=== PATIENT | female | born 1980 | race Caucasian/White ===

== ENCOUNTER 2023-07-10 17:55 | Inpatient (IN) | payer MEDICAID ==
[~2023-07-10] VITALS: Ht 157.5 cm; Wt 75.0 kg
[2023-07-10 18:38] LABS: URINE HCG NEGATIVE (NEG)
[2023-07-10 18:41] LABS: BILIRUBIN,URINE MODERATE (Neg); CLARITY,URINE CLOUDY (Clear); COLOR,URINE BROWN (Yellow); GLUCOSE, URINE NEGATIVE (Neg); KETONES,URINE >=80 mg/dl (Neg); LEUKOCYTE ESTERASE ,URINE NEGATIVE (Neg); OCCULT BLOOD,URINE LARGE (Neg); PH,URINE 5.5 (4.8-8.0); PROTEIN,URINE >=300 mg/dl (Neg)
[2023-07-10 18:47] LABS: UA COLLECTION TYPE CLN CATCH MIDSTREAM
[2023-07-10 18:48] LABS: NITRITES, URINE NEGATIVE (Neg)
[2023-07-10 19:31] LABS: BACTERIA,URINE 2+ /HPF (Neg); MUCUS STRANDS MODERATE /LPF (Neg); RBC,URINE TNTC /HPF (0-2); SQUAMOUS EPITHELIAL CELL,UR FEW /LPF (FEW); WBC,URINE 20-30 /HPF (0-4)
[2023-07-10 19:32] LABS: TRANSITIONAL EPI CELLS,URINE MODERATE /HPF
[2023-07-10] MEDS ORDERED: normal saline 1000ML IV soln IVB ONE (19:35)
[2023-07-10] MEDS ORDERED: ondansetron/PF 4mg/2ml inj IV ONE (19:35)
[2023-07-10] MEDS ORDERED: ketorolac tromethamine 15mg/ml inj. IV ONE (19:35)
[2023-07-10 20:11] LABS: BASOPHILS # (AUTO) 0.1 X10'3 (0-0.2); BASOPHILS % (AUTO) 0.3 % (0-1); LYMPHOCYTES # (AUTO) 0.7 X10'3 (1.1-4.8); MEAN CORPUSCULAR HGB CONC 33.3 g/dL (33.0-36.5); MEAN CORPUSCULAR VOLUME 90.1 FL (78-98); MONOCYTES # (AUTO) 1.3 X10'3 (0-0.9)
[2023-07-10 20:12] LABS: ALANINE AMINOTRANSFERASE 17 U/L (12-78); ALBUMIN 2.6 G/DL (3.4-5.0); ALBUMIN/GLOBULIN RATIO 0.6 (1.1-1.5); ALKALINE PHOSPHATASE 96 IU/L (46-116); ANION GAP 11 (8-16); ASPARTATE AMINO TRANSFERASE 18 U/L (10-37); BILIRUBIN,TOTAL 1.1 MG/DL (0.1-1.0); BLOOD UREA NITROGEN 12 MG/DL (7-18); CHLORIDE 98 MMOL/L (99-107); CREATININE 1.09 MG/DL (0.40-0.90); GLUCOSE 121 MG/DL (70-104); LIPASE 17 U/L (16-77); MAGNESIUM 1.9 MG/DL (1.5-2.4); POTASSIUM 3.3 MMOL/L (3.5-5.1); SODIUM 132 MMOL/L (135-145); TOTAL PROTEIN 6.9 G/DL (6.4-8.2); eCRCL 53 ML/MIN; eGFR 55 ML/MIN
[2023-07-10 20:13] LABS: EOSINOPHILS % (AUTO) 0 % (0-6); HEMATOCRIT 34.4 % (35.0-45.0); HEMOGLOBIN 11.5 g/dl (12.0-16.0); LYMPHOCYTES % (AUTO) 3.8 % (21-51); MEAN PLATELET VOLUME 7.9 FL (7.4-10.4); MONOCYTES % (AUTO) 7.3 % (2-12); NEUTROPHILS # (AUTO) 15.5 X10'3 (1.8-7.7); NEUTROPHILS % (AUTO) 88.6 % (42-75); PLATELET COUNT 321 X10'3 (140-440); RED BLOOD COUNT 3.82 X10'6 (4.20-5.60); RED CELL DISTRIBUTION WIDTH 13.7 % (11.5-14.5); WHITE BLOOD COUNT 17.5 X10'3 (4.5-11.0)
[2023-07-10] MEDS ORDERED: levoFLOXACIN-Levaquin 500mg/D5 100 ML IV ONE (21:55)
[2023-07-10] MEDS ORDERED: metroNIDAZOLE-Flagyl 500mg/NS 100 ML IV ONE (21:55)
[2023-07-10] MEDS ORDERED: morphine 2 MG/ML inj. syringe IV PRN (22:30)
[2023-07-10] MEDS ORDERED: magnesium Cl slow-release 64mg tablet PO PRN (22:40)
[2023-07-10] MEDS ORDERED: magnesium hydroxide 30ml (MOM) UD suspension PO PRN (22:40)
[2023-07-10] MEDS ORDERED: mag hydrox/Alum hydrox/simeth 30ml oral suspension PO PRN (22:40)
[2023-07-10] MEDS ORDERED: acetaminophen 325mg tablet PO PRN (22:40)
[2023-07-10] MEDS ORDERED: magnesium 4gm in 100ml NS 100 ML IV PRN (22:40)
[2023-07-10] MEDS ORDERED: magnesium 2GM in 50ml NS 50 ML IV PRN (22:40)
[2023-07-10] MEDS ORDERED: potassium Cl 20 mEq SR tablet PO PRN ×2 (22:40)
[2023-07-10] MEDS ORDERED: potassium Cl 40MEQ/1/2NS 520ml 520 ML IV PRN (22:40)
[2023-07-10] MEDS ORDERED: LACT1CAP26 PO (23:38)
[2023-07-10] MEDS ORDERED: MULT-1085 PO (23:38)
[2023-07-10] MEDS ORDERED: CETI10TA14 PO (23:38)
[2023-07-10] MEDS ORDERED: ESCI20TA39 PO (23:38)
[2023-07-10] MEDS ORDERED: BUPR-317 PO (23:38)
[2023-07-10] MEDS: normal saline 1000ml 1,000 ML IV SCH (23:54)
[2023-07-11] MEDS: metroNIDAZOLE-Flagyl 500mg/NS 100 ML IV SCH ×3 (01:14→16:16)
[2023-07-11] MEDS: simethicone 125mg capsule PO SCH ×4 (02:29→20:38)
[2023-07-11 03:40] LABS: BASOPHILS # (AUTO) 0.1 X10'3 (0-0.2); BASOPHILS % (AUTO) 0.4 % (0-1); EOSINOPHILS % (AUTO) 0 % (0-6); HEMATOCRIT 31.3 % (35.0-45.0); HEMOGLOBIN 10.3 g/dl (12.0-16.0); LYMPHOCYTES % (AUTO) 5.2 % (21-51); MEAN CORPUSCULAR HEMOGLOBIN 29.9 PG (27.0-31.0); MEAN CORPUSCULAR HGB CONC 32.7 g/dL (33.0-36.5); MEAN CORPUSCULAR VOLUME 91.3 FL (78-98); MEAN PLATELET VOLUME 8.1 FL (7.4-10.4); MONOCYTES # (AUTO) 1.7 X10'3 (0-0.9); MONOCYTES % (AUTO) 9.1 % (2-12); NEUTROPHILS # (AUTO) 15.7 X10'3 (1.8-7.7); NEUTROPHILS % (AUTO) 85.3 % (42-75); PLATELET COUNT 274 X10'3 (140-440); RED BLOOD COUNT 3.43 X10'6 (4.20-5.60); RED CELL DISTRIBUTION WIDTH 13.7 % (11.5-14.5); WHITE BLOOD COUNT 18.5 X10'3 (4.5-11.0)
[2023-07-11 03:55] LABS: ALANINE AMINOTRANSFERASE 16 U/L (12-78); ALBUMIN 2.2 G/DL (3.4-5.0); ALBUMIN/GLOBULIN RATIO 0.6 (1.1-1.5); ALKALINE PHOSPHATASE 92 IU/L (46-116); ANION GAP 9 (8-16); ASPARTATE AMINO TRANSFERASE 20 U/L (10-37); BILIRUBIN,TOTAL 0.9 MG/DL (0.1-1.0); BLOOD UREA NITROGEN 13 MG/DL (7-18); BUN/CREATININE RATIO 12.9 (10.0-20.0); CALCIUM 8.3 MG/DL (8.5-10.1); CHLORIDE 102 MMOL/L (99-107); CREATININE 1.01 MG/DL (0.40-0.90); GLUCOSE 86 MG/DL (70-104); MAGNESIUM 1.8 MG/DL (1.5-2.4); POTASSIUM 3.4 MMOL/L (3.5-5.1); SODIUM 133 MMOL/L (135-145); TOTAL PROTEIN 5.8 G/DL (6.4-8.2); eCRCL 57 ML/MIN; eGFR 60 ML/MIN
[2023-07-11] MEDS ORDERED: acetaminophen 1,000mg/100ml IV 100 ML IV ONE (06:55)
[2023-07-11] MEDS: ESCITALOPRAM 10 mg tablet 10 MG TABLET PO SCH (08:00)
[2023-07-11] MEDS: buPROPion SR 150mg tablet PO SCH (08:00)
[2023-07-11] MEDS: K and/or MAG REPLACEMENT MC SCH ×2 (08:00→20:00)
[2023-07-11] MEDS: ondansetron/PF 4mg/2ml inj IV PRN ×3 (08:31→20:26)
[2023-07-11] MEDS: heparin, porcine 5000 units/ml vial SQ SCH ×2 (08:31→20:26)
[2023-07-11] MEDS: morphine 2 MG/ML inj. syringe IV PRN ×2 (08:32→14:28)
[2023-07-11] MEDS: docusate sod 100mg capsule PO SCH ×2 (08:32→20:25)
[2023-07-11] MEDS: levoFLOXACIN-Levaquin 500mg/D5 100 ML IV SCH (08:33)
[2023-07-11] MEDS: normal saline 1000ml 1,000 ML IV SCH ×2 (08:34→18:40)
[2023-07-11 08:48] VITALS: BP 101/65; PULSE 75; RESP 14; TEMP 98.3; O2SAT 99
[2023-07-11 10:00] VITALS: BP 108/69; PULSE 81; RESP 16; TEMP 98.4; O2SAT 100
[2023-07-11 15:55] VITALS: RESP 16; O2SAT 97
--- NOTE | 2023-07-11 16:21 | NUR ---
PAGER ID: [phone] MESSAGE: INOCENCIA ACOSTA, ORTHO, 9991. RE: [id number]. PT. HAS MORPHINE ONLY FOR PAIN, BUT PT. NECK STILL 8 PAIN. PT. WONDERING IF U HAVE ANOTHER PAIN MED. RUTHYI
--- NOTE | 2023-07-11 17:47 | NUR ---
PAGER ID: [phone] MESSAGE: INOCENCIA ACOSTA, ORTHO, 2018. RE: [id number]. PT. WANTS LACTOBACILLI CAP. ADDED ON, AND WANTS THE DILAUDID. RUTHYI. THANKS
[2023-07-11 18:00] VITALS: BP 142/49; PULSE 72; RESP 15; TEMP 97.4; O2SAT 100
--- NOTE | 2023-07-11 18:09 | NUR ---
Problems reprioritized. Patient report given GABI PRO, questions answered & plan of care reviewed with .
--- NOTE | 2023-07-11 18:42 | NUR ---
Patient in room ORTHO 4023. I have received report from KARLA PRO and had the opportunity to ask questions and assume patient care.
[2023-07-11 20:00] VITALS: RESP 16; O2SAT 97
[2023-07-11] MEDS: temazepam 15mg capsule PO PRN (20:24)
[2023-07-11] MEDS: lactobacillus rhamnosus 10,000 MMU CELLS/CAPSULE PO SCH (20:25)
[2023-07-11] MEDS: HYDROmorphone inj. 0.5 MG/0.5 ML DISP.SYRIN IV PRN (20:27)
[2023-07-11 22:00] VITALS: BP 105/50; PULSE 73; RESP 19; TEMP 97.7; O2SAT 100
[2023-07-12] MEDS: HYDROmorphone inj. 0.5 MG/0.5 ML DISP.SYRIN IV PRN ×4 (00:33→21:39)
[2023-07-12] MEDS: metroNIDAZOLE-Flagyl 500mg/NS 100 ML IV SCH ×3 (00:33→15:12)
[2023-07-12 04:21] LABS: BASOPHILS # (AUTO) 0.1 X10'3 (0-0.2); BASOPHILS % (AUTO) 0.4 % (0-1); EOSINOPHILS % (AUTO) 0.2 % (0-6); HEMATOCRIT 28.6 % (35.0-45.0); HEMOGLOBIN 9.5 g/dl (12.0-16.0); LYMPHOCYTES # (AUTO) 1.4 X10'3 (1.1-4.8); LYMPHOCYTES % (AUTO) 8.3 % (21-51); MEAN CORPUSCULAR HEMOGLOBIN 29.9 PG (27.0-31.0); MEAN CORPUSCULAR HGB CONC 33.1 g/dL (33.0-36.5); MEAN CORPUSCULAR VOLUME 90.4 FL (78-98); MEAN PLATELET VOLUME 8.5 FL (7.4-10.4); MONOCYTES # (AUTO) 1.7 X10'3 (0-0.9); MONOCYTES % (AUTO) 10.3 % (2-12); NEUTROPHILS # (AUTO) 13.1 X10'3 (1.8-7.7); NEUTROPHILS % (AUTO) 80.8 % (42-75); PLATELET COUNT 265 X10'3 (140-440); RED BLOOD COUNT 3.16 X10'6 (4.20-5.60); RED CELL DISTRIBUTION WIDTH 14.1 % (11.5-14.5); WHITE BLOOD COUNT 16.2 X10'3 (4.5-11.0)
[2023-07-12 04:37] LABS: ALANINE AMINOTRANSFERASE 13 U/L (12-78); ALBUMIN/GLOBULIN RATIO 0.5 (1.1-1.5); ALKALINE PHOSPHATASE 85 IU/L (46-116); ANION GAP 6 (8-16); ASPARTATE AMINO TRANSFERASE 17 U/L (10-37); BILIRUBIN,TOTAL 0.4 MG/DL (0.1-1.0); BLOOD UREA NITROGEN 10 MG/DL (7-18); CALCIUM 8.6 MG/DL (8.5-10.1); CHLORIDE 104 MMOL/L (99-107); CREATININE 0.77 MG/DL (0.40-0.90); GLUCOSE 102 MG/DL (70-104); POTASSIUM 3.8 MMOL/L (3.5-5.1); SODIUM 132 MMOL/L (135-145); TOTAL CARBON DIOXIDE 21.7 MMOL/L (24-32); TOTAL PROTEIN 5.7 G/DL (6.4-8.2); eCRCL 75 ML/MIN; eGFR 82 ML/MIN
[2023-07-12] MEDS: normal saline 1000ml 1,000 ML IV SCH ×3 (04:40→20:04)
[2023-07-12 06:00] VITALS: BP 101/59; PULSE 76; RESP 18; TEMP 97.4; O2SAT 98
--- NOTE | 2023-07-12 06:35 | NUR ---
Patient in room ORTHO 4023. I have received report from GABI PRO and had the opportunity to ask questions and assume patient care.
--- NOTE | 2023-07-12 06:38 | NUR ---
Problems reprioritized. Patient report given, questions answered & plan of care reviewed with KARLA PRO.
[2023-07-12] MEDS: simethicone 125mg capsule PO SCH ×3 (08:00→21:00)
[2023-07-12] MEDS: K and/or MAG REPLACEMENT MC SCH ×2 (08:00→20:00)
[2023-07-12] MEDS: levoFLOXACIN-Levaquin 500mg/D5 100 ML IV SCH (08:10)
[2023-07-12] MEDS: ondansetron/PF 4mg/2ml inj IV PRN ×3 (08:11→21:36)
[2023-07-12] MEDS: buPROPion SR 150mg tablet PO SCH (08:12)
[2023-07-12] MEDS: heparin, porcine 5000 units/ml vial SQ SCH ×2 (08:12→21:42)
[2023-07-12] MEDS: docusate sod 100mg capsule PO SCH ×2 (08:13→20:00)
[2023-07-12] MEDS: ESCITALOPRAM 10 mg tablet 10 MG TABLET PO SCH (08:13)
[2023-07-12] MEDS: lactobacillus rhamnosus 10,000 MMU CELLS/CAPSULE PO SCH ×2 (08:13→21:41)
[2023-07-12 10:00] VITALS: BP 99/57; PULSE 61; RESP 16; TEMP 98.1; O2SAT 100
[2023-07-12 10:25] VITALS: RESP 16; O2SAT 100
[2023-07-12 18:00] VITALS: BP 99/52; PULSE 65; RESP 16; TEMP 98.1; O2SAT 100
--- NOTE | 2023-07-12 18:30 | NUR ---
Problems reprioritized. Patient report given TO LUCY PRO, questions answered & plan of care reviewed with .
--- NOTE | 2023-07-12 18:40 | NUR ---
Patient in room ORTHO 4023. I have received report from Phuc PRO and had the opportunity to ask questions and assume patient care.
--- NOTE | 2023-07-12 19:00 | NUR ---
Patient was given MOM for constipation. Addendum: 07/13/23 at 0735 by Zita Barney RN Amended: Links added.
[2023-07-12 19:10] VITALS: RESP 16; O2SAT 100
[2023-07-12] MEDS: temazepam 15mg capsule PO PRN (21:40)
[2023-07-12 22:00] VITALS: BP 117/74; PULSE 71; RESP 18; TEMP 97.5; O2SAT 97
[2023-07-13] MEDS: metroNIDAZOLE-Flagyl 500mg/NS 100 ML IV SCH ×2 (00:18→08:01)
[2023-07-13] MEDS: HYDROmorphone inj. 0.5 MG/0.5 ML DISP.SYRIN IV PRN (01:44)
[2023-07-13] MEDS: normal saline 1000ml 1,000 ML IV SCH (05:12)
[2023-07-13 06:28] LABS: ALANINE AMINOTRANSFERASE 20 U/L (12-78); ALBUMIN/GLOBULIN RATIO 0.5 (1.1-1.5); ALKALINE PHOSPHATASE 76 IU/L (46-116); ANION GAP 7 (8-16); ASPARTATE AMINO TRANSFERASE 19 U/L (10-37); BILIRUBIN,TOTAL 0.3 MG/DL (0.1-1.0); BLOOD UREA NITROGEN 10 MG/DL (7-18); BUN/CREATININE RATIO 11.5 (10.0-20.0); CALCIUM 8.7 MG/DL (8.5-10.1); CHLORIDE 105 MMOL/L (99-107); CREATININE 0.87 MG/DL (0.40-0.90); GLUCOSE 82 MG/DL (70-104); MAGNESIUM 1.7 MG/DL (1.5-2.4); POTASSIUM 3.5 MMOL/L (3.5-5.1); SODIUM 136 MMOL/L (135-145); TOTAL CARBON DIOXIDE 23.7 MMOL/L (24-32); TOTAL PROTEIN 5.9 G/DL (6.4-8.2); eCRCL 67 ML/MIN; eGFR 71 ML/MIN
[2023-07-13 06:30] VITALS: BP 139/77; PULSE 64; RESP 19; TEMP 96.7; O2SAT 96
[2023-07-13 06:40] LABS: BASOPHILS % (AUTO) 0.6 % (0-1); EOSINOPHILS # (AUTO) 0.1 X10'3 (0-0.9); HEMATOCRIT 29.8 % (35.0-45.0); HEMOGLOBIN 9.9 g/dl (12.0-16.0); LYMPHOCYTES # (AUTO) 1.4 X10'3 (1.1-4.8); LYMPHOCYTES % (AUTO) 19.7 % (21-51); MEAN CORPUSCULAR HEMOGLOBIN 30.1 PG (27.0-31.0); MEAN CORPUSCULAR HGB CONC 33.4 g/dL (33.0-36.5); MEAN CORPUSCULAR VOLUME 90.2 FL (78-98); MEAN PLATELET VOLUME 8.4 FL (7.4-10.4); MONOCYTES # (AUTO) 0.8 X10'3 (0-0.9); MONOCYTES % (AUTO) 10.7 % (2-12); NEUTROPHILS # (AUTO) 4.9 X10'3 (1.8-7.7); PLATELET COUNT 269 X10'3 (140-440); RED CELL DISTRIBUTION WIDTH 14.1 % (11.5-14.5); WHITE BLOOD COUNT 7.3 X10'3 (4.5-11.0)
--- NOTE | 2023-07-13 06:55 | NUR ---
Problems reprioritized. Patient report given, questions answered & plan of care reviewed with sagrario PRO.
[2023-07-13] MEDS: lactobacillus rhamnosus 10,000 MMU CELLS/CAPSULE PO SCH (07:53)
[2023-07-13] MEDS: ESCITALOPRAM 10 mg tablet 10 MG TABLET PO SCH (07:54)
[2023-07-13] MEDS: buPROPion SR 150mg tablet PO SCH (07:54)
[2023-07-13] MEDS: docusate sod 100mg capsule PO SCH (07:56)
[2023-07-13] MEDS: heparin, porcine 5000 units/ml vial SQ SCH (07:56)
[2023-07-13] MEDS: simethicone 125mg capsule PO SCH (07:56)
[2023-07-13] MEDS: K and/or MAG REPLACEMENT MC SCH (08:00)
[2023-07-13] MEDS: levoFLOXACIN-Levaquin 500mg/D5 100 ML IV SCH (08:02)
[2023-07-13 08:35] VITALS: RESP 16
[2023-07-13 10:00] VITALS: BP 104/70; PULSE 74; RESP 16; TEMP 97.2; O2SAT 99
[2023-07-13] MEDS ORDERED: METR-159 PO (11:34)
[2023-07-13] MEDS ORDERED: HYDR-3972 PO (11:34)
[2023-07-13] MEDS ORDERED: LEVO750T68 PO (11:34)
--- NOTE | 2023-07-13 11:59 | NUR ---
Patient discharge completed. IV removed. All education completed with verbal acknowledgement completed of understanding. Patient aware to pickle sorter new medications at [facility]. Next doses of when to take home meds documented on paper work. Addendum: 07/13/23 at 1204 by Corrine Pascal RN Patient waiting on a ride. Discharged on paperwork.
== END 2023-07-13 12:56 | disposition home or self-care (01) | DRG 720 ==
LOC: ER 17:56 → ED HOLD 22:44 → ORTHO 4S 07-11 08:05
PROVIDERS: ADMIT Internal Medicine; ATTEND Family Medicine
DX: A41.51 Sepsis due to Escherichia coli [E. coli] (principal); E87.1 Hypo-osmolality and hyponatremia; D64.9 Anemia, unspecified; E87.6 Hypokalemia; K52.9 Noninfective gastroenteritis and colitis, unspecified; N39.0 Urinary tract infection, site not specified; F32.A Depression, unspecified; Z88.0 Allergy status to penicillin; Z98.891 History of uterine scar from previous surgery; Z98.84 Bariatric surgery status
CPT/HCPCS: 36415; 74176; 80053; 81001; 81025; 83690; 83735; 85025; 87040; 87077; 87081; 87088; 87186; 99285; G0378; J1170; J1644; J1885; J1956; J2270; J2405; J3480; J3490; J7030